=== PATIENT | male | born 1950 | race Caucasian/White ===

== ENCOUNTER 2019-04-01 17:04 | Emergency (ER) | payer SELFPAY ==
[~2019-04-01] VITALS: Ht 185.4 cm; Wt 135.0 kg
[2019-04-01] MEDS ORDERED: ATENOLOL25 MG PO (17:40)
[2019-04-01] MEDS ORDERED: ZESTRIL20 MG PO (17:40)
[2019-04-01] MEDS ORDERED: DOXAZOSIN MESYLA2 MG PO (17:41)
[2019-04-01] MEDS ORDERED: IMODIUM A-D2 M2 PO (18:28)
[2019-04-01] MEDS ORDERED: ZOFRAN4 MG PO (18:28)
== END 2019-04-01 18:51 | disposition home or self-care (01) ==
LOC: ED 17:04
DX: R19.7 Diarrhea, unspecified (principal); I10 Essential (primary) hypertension; Z87.891 Personal history of nicotine dependence; Z79.899 Other long term (current) drug therapy
CPT/HCPCS: 99283